=== PATIENT | female | born 2000 | race Caucasian/White ===

== ENCOUNTER 2018-03-14 11:39 | Emergency (ER) | payer MEDICAID, SELFPAY ==
[2018-03-14 12:02] VITALS: BP 132/70; PULSE 67; RESP 18; TEMP 37; O2SAT 98
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
== END 2018-03-14 12:40 | disposition home or self-care (01) ==
PROVIDERS: Emergency Provider Student in an Organized Health Care Education/Training Program; PCP Family Medicine
DX: S01.112A Laceration without foreign body of left eyelid and periocular area, initial encounter (principal); Y04.2XXA Assault by strike against or bumped into by another person, initial encounter; Y07.03 Male partner, perpetrator of maltreatment and neglect
CPT/HCPCS: 90471; 99284; 99283